=== PATIENT | female | born 1970 | race Hispanic/Latino ===

== ENCOUNTER → 2017-05-07 | Day surgery (SDC) | payer BC ==
--- NOTE | 2017-05-07 10:08 | MMO ---
LEFT UNILATERAL MAMMOGRAM: Date: 05/07/17 HISTORY: Post biopsy mammogram for clip placement. FINDINGS: Mammogram confirms the clip placement. The clip is in the area of the targeted calcifications. IMPRESSION: Successful clip placement. POS: MERARI
--- NOTE | 2017-05-07 10:08 | MMO ---
SPECIMEN RADIOGRAPH: Date: 05/07/17 HISTORY: Biopsy of breast calcifications. FINDINGS: Single specimen radiograph confirms the presence of breast calcifications. IMPRESSION: Specimen radiograph does document the presence of calcifications within the breast specimen. POS: MERARI
--- NOTE | 2017-05-07 10:13 | MMO ---
STEREOTACTIC LOCALIZATION AND PERCUTANEOUS BIOPSY OF LEFT BREAST CALCIFICATIONS: Date: 05/07/17 HISTORY: Breast calcifications noted on mammogram in [place]. These were recommended for biopsy. TECHNIQUE: After informed consent was obtained, the patient was prepped and draped in the normal sterile fashion . Local anesthesia was obtained with 1% Xylocaine mixed with sodium bicarb. A small skin incision was made with a #11 scalpel blade. A 10 gauge biopsy needle was introduced and a total of six vacuum-ass isted cord biopsies were obtained at the 12 o'clock, 2 o'clock, 4 o'clock, 6 o'clock, 8 o'clock, and 10 o'clock positions. Specimen radiograph confirms the presence of breast calcifications. Stereotactic clip was deployed. Post biopsy mammogram confirms the clip placement in the area of calc ifications. Needle was withdrawn and hemostasis obtained. The patient tolerated the procedure well. There were no immediate complications. IMPRESSION: Successful stereotactic biopsy of left breast calcifications. No immediate complications of the proce dure. POS: YEFRI
== END ==
LOC: MAMMO 07:13
PROVIDERS: ATTEND Obstetrics & Gynecology
PROC: 0HBU3ZX Excision of Left Breast, Percutaneous Approach, Diagnostic (ICD-10-PCS; principal; 2017-05-07)
DX: D05.12 Intraductal carcinoma in situ of left breast (principal); Z17.0 Estrogen receptor positive status [ER+]
CPT/HCPCS: 19081; 76098; 88305; 88341; 88342; 88360